=== PATIENT | female | born 2000 | race Caucasian/White ===

== ENCOUNTER → 2021-04-04 17:58 | Outpatient (CLI) | payer BC, OTHER, SELFPAY | PROVIDERS: Visit Provider Nurse Practitioner | DX: U07.1 COVID-19 (principal) | CPT/HCPCS: C9803; U0003; U0005 ==

== ENCOUNTER 2021-04-16 18:33 | Emergency (ER) | payer BC, OTHER, SELFPAY ==
[2021-04-16 19:02] VITALS: BP 137/68; PULSE 82; RESP 16; TEMP 37; O2SAT 99; BMI 32.8
--- NOTE | 2021-04-16 19:06 | HMH.EDUTC ---
[facility] [place] Disposition Clinical Impression: Exposure to COVID-19 virus Disposition: Home, Self-Care Condition on Discharge: Good Instructions: Preventing the Spread of Coronavirus Discharge Instructions, DI for COVID-19 (Suspected or Confirmed ) Additional Instructions: Drink plenty of fluids. Take tylenol for pain or fever. Return if you begin to have difficulty breathing. Follow up with your regular doctor. GO TO THE ER FOR ANY WORSENING SYMPTOMS Quarantine until you know the results of your covid-19 test. If it is positive, the health department should call you and give you further instructions about your length of Quarantine and other things. Notify your school or workplace of your results and follow their instructions regarding return to work/school. Referrals: Provider,Referral, [Primary Care Provider] - Forms: Work/School Release Time of Disposition: 19:25 Medical Decision Making - Medical Records Medical records reviewed: No: I reviewed the patient's medical records. - Matthew Inquiry Pt receiving controlled substance: No Vital Signs: 04/16/21 19:02 Temperature 98.6 F Temperature Source Oral Pulse Rate [Left] 82 Respiratory Rate 16 Blood Pressure [Right Arm] 137/68 Blood Pressure Mean [Right Arm] 91 02 Sat by Pulse Oximetry 99 [facility] [place] HPI - General Stated complaint: COVID TEST Time Seen by Provider: 04/16/21 19:06 Mode of Arrival: Ambulatory Source of Information: Patient Limitations: No Limitations Description of Symptoms (Recalled from Triage Doc. by RN): no exposure...asymptomatic...wants a covid test. HEENT Symptoms (Recalled from RN notes): No Resp Symptoms (Recalled from RN notes): No Skin Symptoms (Recalled from RN notes): No MS Symptoms (Recalled from RN notes): No Functional Status (Recalled from RN notes): wnl - History of Present Illness Provider Complaint: She is here to have a covid-19 test. She denies any symptoms. Her boyfriend is currently sick with viral type symptoms that could be covid-19 (but not confirmed). She would like to be tested for covid-19. She has not been vaccinated against covid-19. - Worker's Comp Is this a Worker's Comp case?: No [facility] History - Hepatitis A Screen Drug use history?: No High risk sexual behaviors?: No History of sexually transmitted infection?: No Currently employed?: No Childcare worker?: No Do you have indoor plumbing?: Yes Do you have electricity?: Yes Attestation statement:: This patient has been screened for Hepatitis A risk factors. I have reviewed the patient's past medical history: Yes ROS Obtained: Yes All systems reviewed & no additional complaints - Constitutional Constitutional: Reports system reviewed and no additional complaints, except as docu - Eyes Eyes: Reports system reviewed and no additional complaints, except as docu - ENT Ears, Nose, Mouth, and Throat: Reports system reviewed and no additional complaints, except as docu - Cardiovascular Cardiovascular: Reports system reviewed and no additional complaints, except as docu - Respiratory Respiratory: Reports system reviewed and no additional complaints, except as docu - Gastrointestinal Gastrointestingal: Reports: system reviewed and no additional complaints, except as docu - Musculoskeletal Musculoskeletal: Denies joint pain - Integumentary/Breasts Skin/Breast: Denies rash Physical Exam - General General appearance: alert, in no apparent distress - Head Head exam: atraumatic, normocephalic, normal inspection - Eye Eye exam: Present: normal appearance, PERRL, EOMI - ENT ENT exam: Present: normal exam, normal oropharynx, mucous membranes moist, TM's normal bilaterally, normal external ear exam - Neck Neck exam: Present: normal inspection, full ROM, trachea midline. Absent: meningismus, lymphadenopathy - Chest Chest inspection: Present: normal inspection, symmetric chest wall rise. Absent: tenderness - Respirat
[2021-04-16 19:20] VITALS: BP 137/68; PULSE 82; RESP 16; TEMP 37
== END 2021-04-16 19:38 | disposition home or self-care (01) ==
PROVIDERS: Emergency Provider Nurse Practitioner Family
DX: Z20.822 Contact with and (suspected) exposure to COVID-19 (principal)
CPT/HCPCS: 99202; C9803; G0463; U0003; U0005

== ENCOUNTER 2021-05-03 17:50 | Emergency (ER) | payer BC, OTHER, SELFPAY ==
[2021-05-03 17:51] VITALS: BP 132/91; PULSE 91; RESP 16; TEMP 37.1; O2SAT 98; BMI 32.5
[2021-05-03 18:28] LABS: UTC Pregnancy Test, Urine Positive (Negative)
[2021-05-03 18:29] LABS: UTC Strep Screen (Rapid) Negative (Negative)
--- NOTE | 2021-05-03 18:47 | HMH.EDUTC ---
[facility] [place] Disposition Clinical Impression: Positive test Disposition: Home, Self-Care Condition on Discharge: Good Instructions: Eating for Appropriate Weight Gain During , Exercise and : A Healthy Combination, Skin: Glowing, Stretching, Darkening, and More Additional Instructions: Call and make appointment with OBGYN Return if needed Straight to ER if any life threatening symptoms Return if needed *Monitor Temp, Over the counter Motrin or Tylenol as directed/as needed Tylenol every 4 hours and Motrin every 6 hours (as long as your family doctor has told you that you can take it) for fever or pain. and straight to ER if unable to lower temp less than 101.0 after medication given *Warm salt water gargles may help to soothe the throat *Throat Lozenges *Warm fluids like tea with honey may help to soothe the throat *Sleep elevated *Humidifier/Vaporizer Your throat swab was sent for culture. Those results are typically sent to your primary care. Be sure to follow up in 2-3 days with your family doctor/primary care physician if no improvement so they can review those result and treat if necessary. If you don?t have a primary care doctor, I recommend you get one but in the mean time, you will have to return to a walk in clinic Follow up IMMEDIATELY for new or worsening symptoms or no Noticeable improvement over the next 48-72 hours. 911 for difficulty breathing or swallowing Referrals: Provider,Referral, MD [Primary Care Provider] - As needed Time of Disposition: 18:55 Medical Decision Making - Matthew Inquiry Pt receiving controlled substance: No Matthew was queried for this patient: No Vital Signs: 05/03/21 17:51 Temperature 98.8 F Temperature Source Oral Pulse Rate [Right] 91 H Respiratory Rate 16 Blood Pressure [Right Arm] 132/91 H Blood Pressure Mean [Right Arm] 104 Blood Pressure Source [Right Arm] Automatic Cuff Blood Pressure Position [Right Arm] Sitting 02 Sat by Pulse Oximetry 98 Oxygen Delivery Method Room Air - Lab Data Lab results reviewed: Yes: I reviewed the patient's lab results. Lab Results 05/03/21 18:12: Strep Scn Rapid Clinic Negative 05/03/21 18:12: Tst Clinic Positive Orders (Tests/Meds): ORDERS Category Date Time Status Strep Screen Confirmation Stat Micro 05/03/21 18:12 Received [facility] [place] HPI - General Stated complaint: Sore throat; stomach issues Time Seen by Provider: 05/03/21 18:47 Mode of Arrival: Ambulatory Source of Information: Patient Limitations: No Limitations Description of Symptoms (Recalled from Triage Doc. by RN): pt advises she missed her period in mar and she has a sore throat HEENT Symptoms (Recalled from RN notes): Yes (sore throat) Resp Symptoms (Recalled from RN notes): No Skin Symptoms (Recalled from RN notes): No MS Symptoms (Recalled from RN notes): No Functional Status (Recalled from RN notes): na - History of Present Illness Provider Complaint: Patient states that she hasnt had a period since Mar and she said she is having sore throat and feeling achy and tired States that she wanted to get checked for and strep throat - Related Data Allergies Allergy/AdvReac Type Severity Reaction Status Date / Time No Known Allergies Allergy Verified 04/16/21 19:20 - Worker's Comp Is this a Worker's Comp case?: No [facility] History - Hepatitis A Screen Drug use history?: No High risk sexual behaviors?: No History of sexually transmitted infection?: No Currently employed?: No Childcare worker?: No Do you have indoor plumbing?: Yes Do you have electricity?: Yes Attestation statement:: This patient has been screened for Hepatitis A risk factors. I have reviewed the patient's past medical history: Yes ROS Obtained: Yes All systems reviewed & no additional complaints, Yes Systems reviewed as appropriate & no additional complaints - Constitutional Constitutional: Reports system reviewed and no
[2021-05-03 19:02] VITALS: BP 130/87; PULSE 84; RESP 16; TEMP 36.7; O2SAT 98
== END 2021-05-03 19:03 | disposition home or self-care (01) ==
PROVIDERS: Emergency Provider Nurse Practitioner
DX: J02.9 Acute pharyngitis, unspecified (principal); Z32.01 Encounter for pregnancy test, result positive
CPT/HCPCS: 81025; 87880; 99212; G0463

== ENCOUNTER 2021-05-04 16:52 | Emergency (ER) | payer BC, OTHER, SELFPAY ==
[2021-05-04 17:10] VITALS: BP 137/78; PULSE 83; RESP 18; TEMP 37.2; O2SAT 97; BMI 32.8
--- NOTE | 2021-05-04 17:48 | HMH.EDUTC ---
[facility] [place] Clinical Impression: Viral syndrome, Nausea Qualifiers: Weeks of gestation: less than 8 weeks Qualified Code(s): Z3A.01 - Less than 8 weeks gestation of Disposition: Home, Self-Care Condition on Discharge: Good Instructions: DI for COVID-19 (Suspected or Confirmed ), Preventing the Spread of Coronavirus Discharge Instructions Additional Instructions: Drink plenty of fluids. Take tylenol for pain or fever. Follow up with your regular doctor. GO TO THE ER FOR ANY WORSENING SYMPTOMS Quarantine until you know the results of your covid-19 test. Notify your school or workplace of your results and follow their instructions regarding return to work/school. Prescriptions: Promethazine HCl [Phenergan 25mg tab] 25 mg PO Q6H PRN #20 tab PRN Reason: Nausea And Vomiting Transmission Status: Received by [id number] Referrals: Provider,Referral, MD [Primary Care Provider] - Forms: Work/School Release Time of Disposition: 18:03 Medical Decision Making - Medical Records Medical records reviewed: No: I reviewed the patient's medical records. - Matthew Inquiry Pt receiving controlled substance: No Vital Signs: 05/04/21 17:10 05/04/21 18:10 Temperature 99 F 99 F Temperature Source Oral Pulse Rate 83 Pulse Rate [Left] 83 Respiratory Rate 18 18 Blood Pressure 137/78 Blood Pressure [Right Arm] 137/78 Blood Pressure Mean [Right Arm] 97 02 Sat by Pulse Oximetry 97 - Lab Data Lab results reviewed: Yes: I reviewed the patient's lab results. [facility] [place] HPI - General Stated complaint: COVID TEST (PREG) Time Seen by Provider: 05/04/21 17:48 Mode of Arrival: Ambulatory Source of Information: Patient Limitations: No Limitations Description of Symptoms (Recalled from Triage Doc. by RN): pt states she needs a covid test for work. HEENT Symptoms (Recalled from RN notes): No Resp Symptoms (Recalled from RN notes): No Skin Symptoms (Recalled from RN notes): No MS Symptoms (Recalled from RN notes): No Functional Status (Recalled from RN notes): wnl - History of Present Illness Provider Complaint: She has been having nausea and feeling bad. She is afraid she has covid. She denies any fever. She is very early , but she is unsure exactly how far (less that 8 weeks). - Related Data Previous Rx's Medication Instructions Recorded Promethazine HCl [Phenergan 25mg 25 mg PO Q6H PRN #20 tab 05/04/21 tab] Allergies Allergy/AdvReac Type Severity Reaction Status Date / Time No Known Allergies Allergy Verified 04/16/21 19:20 - Worker's Comp Is this a Worker's Comp case?: No H History - Hepatitis A Screen Drug use history?: No High risk sexual behaviors?: No History of sexually transmitted infection?: No Currently employed?: No Childcare worker?: No Do you have indoor plumbing?: Yes Do you have electricity?: Yes Attestation statement:: This patient has been screened for Hepatitis A risk factors. I have reviewed the patient's past medical history: Yes ROS Obtained: Yes All systems reviewed & no additional complaints - Constitutional Constitutional: Reports as per HPI - Eyes Eyes: Denies eye discharge - ENT Ears, Nose, Mouth, and Throat: Reports as per HPI - Cardiovascular Cardiovascular: Denies chest pain - Respiratory Respiratory: Denies chest congestion, Reports cough, Denies dyspnea, Denies stridor, Denies wheezing Physical Exam - General General appearance: alert, in no apparent distress - Head Head exam: atraumatic, normocephalic, normal inspection - Eye Eye exam: Present: normal appearance, PERRL, EOMI - ENT ENT exam: Present: normal exam, normal oropharynx, mucous membranes moist, TM's normal bilaterally, normal external ear exam - Neck Neck exam: Present: normal inspection, full ROM, trachea midline. Absent: meningismus, lymphadenopathy - Chest Chest inspection: Present: normal
[2021-05-04 18:10] VITALS: BP 137/78; PULSE 83; RESP 18; TEMP 37.2
== END 2021-05-04 18:11 | disposition home or self-care (01) ==
PROVIDERS: Emergency Provider Nurse Practitioner Family
DX: B34.9 Viral infection, unspecified (principal); Z3A.01 Less than 8 weeks gestation of pregnancy
CPT/HCPCS: 99212; C9803; G0463; U0003; U0005

== ENCOUNTER → 2021-05-16 15:08 | Outpatient (CLI) | payer BC, OTHER, SELFPAY ==
[2021-05-16 15:51] LABS: Basophils # 0.1 K/mm3 (0-0.2); Basophils % 0.6 % (0.1-2.0); Eosinophils # 0.2 K/mm3 (0.0-0.4); Eosinophils % 1.7 % (0.1-12.0); Hematocrit 40.3 % (37.0-47.0); Hemoglobin 13.5 g/dL (12.2-16.2); Lymphocytes % 21.1 % (10-50); Mean Corpuscular HGB Conc 33.3 g/dL (31.8-35.4); Mean Corpuscular Hemoglobin 28.5 pg (27.0-31.2); Mean Corpuscular Volume 85.6 fl (81-99); Mean Platelet Volume 8.1 fl (7.4-10.4); Monocytes # 0.4 K/mm3 (0.1-1.0); Monocytes % 3.9 % (1.7-9.3); Neutrophils # 6.8 K/mm3 (1.8-7.8); Neutrophils % 72.8 % (37.0-80.0); Platelet Count 390 K/mm3 (142-424); Red Blood Count 4.71 M/mm3 (4.20-5.40); Red Cell Distribution Width 13.5 % (11.5-17.5); White Blood Count 9.3 K/mm3 (4.5-13.0)
[2021-05-18 07:12] LABS: HIV Screen 4th Generation wRfx Non Reactive (Non Reactive); Hepatitis B Surface Antigen Negative (Negative); Hepatitis C Antibody <0.1 s/co ratio (0.0-0.9); Rubella Antibodies, IgG <0.90 index (Immune >0.99)
[2021-05-18 09:14] LABS: Rapid Plasma Reagin Ab Titer Non Reactive (NonRea<1:1)
[2021-05-18 21:19] LABS: Neisseria gonorrhoeae, NAA Negative (Negative)
== END ==
LOC: LAB 15:10
PROVIDERS: Visit Provider Nurse Practitioner Obstetrics & Gynecology
DX: Z34.90 Encounter for supervision of normal pregnancy, unspecified, unspecified trimester (principal); Z3A.11 11 weeks gestation of pregnancy
CPT/HCPCS: 36415; 85025; 86592; 86703; 86762; 86850; 87340; 87380; 87491; 87591; G0432

== ENCOUNTER → 2021-05-24 12:52 | Outpatient (CLI) | payer BC, OTHER, SELFPAY ==
--- NOTE | 2021-05-24 12:52 | US_ITS ---
FINAL REPORT CLINICAL HISTORY: for dates FINDINGS: Transvaginal sonographic images of the pelvis were obtained. There is a single intrauterine . Average gestational age is 6 weeks 4 days. Yolk sac measures 0.42 cm. [place]-rump length measures 0.67 cm consistent with 6 week 4 day gestation. Heart rate is detected at 126 bpm. The ovaries are within normal limits. IMPRESSION: Single living intrauterine . Reviewed, Interpreted and Dictated by Mirza Peralta MD Transcribed by Yvonen Reza Authenticated by Mirza Peralta MD on 05/24/2021 04:01:32 PM [facility]
== END ==
PROVIDERS: PCP Nurse Practitioner Obstetrics & Gynecology; Visit Provider Nurse Practitioner Obstetrics & Gynecology
DX: Z34.90 Encounter for supervision of normal pregnancy, unspecified, unspecified trimester (principal)
CPT/HCPCS: 76801

== ENCOUNTER → 2021-07-11 15:46 | Outpatient (CLI) | payer BC, OTHER, SELFPAY | PROVIDERS: Visit Provider Nurse Practitioner Obstetrics & Gynecology | DX: N39.0 Urinary tract infection, site not specified (principal); Z3A.13 13 weeks gestation of pregnancy | CPT/HCPCS: 36415; 87086 ==

== ENCOUNTER 2021-08-26 16:26 | Outpatient (CLI) | payer OTHER, SELFPAY ==
[2021-08-26 16:36] VITALS: BMI 35.0
[2021-08-26 16:44] LABS: Microscopic, Urine URINE MICROSCOPIC (MICROSCOPIC)
[2021-08-26 16:49] VITALS: BP 119/76; PULSE 85; RESP 16; TEMP 36.8; O2SAT 95; BMI 35.0
[2021-08-26 16:55] LABS: Appearance,Urine CLEAR (Clear); Bilirubin,Urine Negative (Negative); Blood, Urine Negative (Negative); Color,Urine YELLOW (Yellow); Glucose,Urine (UA) Negative (Negative); Ketones,Urine Negative (Negative); Leukocyte Esterase,Urine Negative (Negative); Nitrate,Urine Negative (Negative); Protein,Urine Negative (Negative); Specific Gravity, Urine 1.025 (1.005-1.030); Urobilinogen,Urine 0.2 EU/dl (0.2)
[2021-08-26 17:05] LABS: Amphetamine/Metha Screen,Urine Negative ng/ml (<1000); Benzodiazepines Screen,Urine Negative ng/ml (<200)
[2021-08-26 17:06] LABS: Barbiturates Screen,Urine Negative ng/ml (<200)
[2021-08-26 17:07] LABS: Cannabinoid Screen,Urine Negative ng/ml (<50); Cocaine Screen,Urine Negative ng/ml (<300)
[2021-08-26 17:08] LABS: Methadone Screen,Urine Negative ng/ml (<300); Opiate Screen,Urine Negative ng/ml (<300)
[2021-08-26 17:09] LABS: Bacteria,Urine Trace /lpf; Phencyclidine Screen,Urine Negative ng/ml (<25); Squamous Epithelial Cell,Urine Occasional #/hpf (0-5)
== END 2021-08-26 17:14 | disposition home or self-care (01) ==
LOC: OBOUT 16:29 → OB 16:30
PROVIDERS: PCP Nurse Practitioner Obstetrics & Gynecology; Visit Provider Obstetrics & Gynecology
DX: O36.8120 Decreased fetal movements, second trimester, not applicable or unspecified (principal); Z3A.20 20 weeks gestation of pregnancy
CPT/HCPCS: 80305; 81001; G0463

== ENCOUNTER → 2021-08-29 14:59 | Outpatient (CLI) | payer OTHER, SELFPAY ==
--- NOTE | 2021-08-29 14:59 | US_ITS ---
FINAL REPORT CLINICAL HISTORY: 20 weeks gestation FINDINGS: There is a single live intrauterine gestation. Presentation is breech. The cervix is closed and measures 3.5 cm. Placenta is posterior and grade 1. Cardiac activity is confirmed at 146 bpm. The fetus is active. Three-vessel cord with satisfactory umbilical cord insertion. Four-chamber heart is noted. brain and ventricles are unremarkable. Chest and diaphragm are unremarkable. ABDOMEN: Both kidneys are unremarkable. Stomach is unremarkable. SPINE: No anomalies identified. Both arms and legs noted. AMNIOTIC FLUID: Appropriate amount. MEASUREMENTS: ULTRASOUND AGE: 20 weeks 1 days. GESTATION AGE: 20 weeks 3 days. ESTIMATED WEIGHT: 334 g GROWTH PERCENTILE: 30% BPD: 4.6 cm consistent with 20 weeks 0 days. OFD: 6.2 cm consistent with 21 weeks 0 days. HC: 17.2 cm consistent with 19 weeks 6 days. AC: 14.6 cm consistent with 20 weeks 0 days. FL: 3.4 cm consistent with 20 weeks 4 days. HC/AC: 1.18 CI: 74% FL/BPD: 73% FL/AC: 23% IMPRESSION: Single living IUP with an ultrasound age of 20 weeks 1 days. Reviewed, Interpreted and Dictated by Carlos Mccord III, MD Transcribed by Wes Ramirez Authenticated and [facility]
== END ==
PROVIDERS: Visit Provider Nurse Practitioner Obstetrics & Gynecology
DX: Z34.90 Encounter for supervision of normal pregnancy, unspecified, unspecified trimester (principal); Z3A.20 20 weeks gestation of pregnancy
CPT/HCPCS: 76811

== ENCOUNTER 2021-09-17 05:30 | Emergency (ER) | payer OTHER, SELFPAY ==
[2021-09-17 05:30] VITALS: BP 142/91; PULSE 82; RESP 16; TEMP 37.1; O2SAT 99; BMI 35.0
[2021-09-17 05:58] LABS: Microscopic, Urine URINE MICROSCOPIC (MICROSCOPIC)
[2021-09-17 05:58] LABS: Basophils # 0.1 K/mm3 (0-0.2); Basophils % 0.7 % (0.1-2.0); Eosinophils # 0.1 K/mm3 (0.0-0.4); Hematocrit 37.7 % (37.0-47.0); Hemoglobin 12.3 g/dL (12.2-16.2); Lymphocytes # 2.2 K/mm3 (0.7-4.5); Lymphocytes % 18.2 % (10-50); Mean Corpuscular HGB Conc 32.6 g/dL (31.8-35.4); Mean Corpuscular Hemoglobin 29.2 pg (27.0-31.2); Mean Corpuscular Volume 89.8 fl (81-99); Mean Platelet Volume 8.4 fl (7.4-10.4); Monocytes # 0.5 K/mm3 (0.1-1.0); Monocytes % 3.9 % (1.7-9.3); Neutrophils # 9.4 K/mm3 (1.8-7.8); Neutrophils % 76.3 % (37.0-80.0); Platelet Count 368 K/mm3 (142-424); White Blood Count 12.3 K/mm3 (4.5-13.0)
--- NOTE | 2021-09-17 05:59 | PC.NURSE ---
HEART TONES 152. FAMILY AT BEDSIDE. SPOKE WITH OB NACHO AND PT CAN GO TO OB FLOOR.
[2021-09-17 06:01] LABS: Appearance,Urine SL CLOUDY (Clear); Bilirubin,Urine Negative (Negative); Blood, Urine Negative (Negative); Color,Urine YELLOW (Yellow); Glucose,Urine (UA) Negative (Negative); Ketones,Urine Negative (Negative); Leukocyte Esterase,Urine Negative (Negative); Nitrate,Urine Negative (Negative); Protein,Urine Negative (Negative); Urobilinogen,Urine 0.2 EU/dl (0.2)
--- NOTE | 2021-09-17 06:05 | HMH.EDPREG ---
ED Disposition Clinical Impression: Abdominal pain Qualifiers: Abdominal location: right lower quadrant Qualified Code(s): R10.31 - Right lower quadrant pain Qualifiers: Weeks of gestation: 23 weeks Qualified Code(s): Z3A.23 - 23 weeks gestation of Disposition: Still a Patient Condition on Discharge: Good Instructions: DI for Acute Abdominal Pain Additional Instructions: will have pt seen in ob Referrals: Saturnino Barger MD [Primary Care Provider] - - Critical Care Critical Care Time: No Attestation: On 09/17/21, the high probability of a clinically significant, sudden or life threatening deterioration of the following system(s) required my full and direct attention, intervention and personal management. The time I documented below is in addition to time spent performing reported procedures but includes the following listed in this critical care notation. Medical Decision Making - Medical Records Medical records reviewed: Yes: I reviewed the patient's medical records. - Matthew Inquiry Pt receiving controlled substance: No Vital Signs: 09/17/21 05:30 Temperature 98.8 F Temperature Source Oral Pulse Rate [Left Radial] 82 Respiratory Rate 16 Blood Pressure [Right Arm] 142/91 H Blood Pressure Mean [Right Arm] 108 Blood Pressure Source [Right Arm] Automatic Cuff Blood Pressure Position [Right Arm] Sitting 02 Sat by Pulse Oximetry 99 Oxygen Delivery Method Room Air - Lab Data Lab results reviewed: Yes: I reviewed the patient's lab results. Lab Results 09/17/21 05:37: Urine Color Yellow, Urine Appearance Sl cloudy, Urine pH 7.0, Ur Specific [place] 1.020, Urine Protein Negative, Urine Glucose (UA) Negative, Urine Ketones Negative, Urine Blood Negative, Urine Nitrate Negative, Urine Bilirubin Negative, Urine Urobilinogen 0.2, Ur Leukocyte Esterase Negative 09/17/21 05:48: WBC 12.3, RBC 4.20, Hgb 12.3, Hct 37.7, MCV 89.8, MCH 29.2, MCHC 32.6, RDW 14.0, Plt Count 368, MPV 8.4, Neut % (Auto) 76.3, Lymph % (Auto) 18.2, [place] % (Auto) 3.9, Eos % (Auto) 1.0, Baso % (Auto) 0.7, Neut # (Auto) 9.4 H, Lymph # (Auto) 2.2, [place] # (Auto) 0.5, Eos # (Auto) 0.1, Baso # (Auto) 0.1 Result diagrams: 09/17/21 05:48 Orders (Tests/Meds): ED MEDICATIONS Generic Name Dose Route Start Last Admin Trade Name Freq PRN Reason Stop Dose Admin Sodium Chloride 1,000 mls @ 999 mls/hr 09/17/21 06:00 Sod Chlor 0.9% 1000ml Bag IV 09/17/21 07:00 .Q1H1M KITA ORDERS Category Date Time Status C-Reactive Protein Stat Lab 09/17/21 05:48 Received CMP [Comprehensive Metabolic Panel] Stat Lab 09/17/21 05:48 Received Complete Blood Count Auto Diff Stat Lab 09/17/21 05:48 Results Erythrocyte Sedimentation Rate Stat Lab 09/17/21 05:48 Results Lactic Acid Stat Lab 09/17/21 05:48 Received Procalcitonin Stat Lab 09/17/21 05:48 Received Urinalysis and Microscopic Stat Lab 09/17/21 05:37 Results Medical Decision Narrative: rt sided abd pain with no def etiology HPI - General Chief complaint: Abdominal Pain Stated complaint: SOA/ABD Pain Time Seen by Provider: 09/17/21 06:05 Mode of Arrival: EMS Source of Information: Patient, EMS, Medical Record Limitations: No Limitations Description of Symptoms (Recalled from ER Triage Doc. by RN): PT IS 23 WEEKS . RIGHT LOWER ABDOMINAL PAIN SINCE YESTERDAY; PAIN IS CONSTANT AND SHARP. [id number] - History of Present Illness HPI Narrative: rt sided abd pain over the last day with nausea - no diarrheaa MD Complaint: abdominal pain Onset (ago): day(s) Consistency: constant Location: abdomen Severity: moderate Quality: stabbing Associated symptoms: denies other symptoms Vaginal bleeding: none : Yes Date of Last Menstrual Period: 04/25/21 care: followed by OB - Related Data Para: 0 Home Medications Medication Instructions Recorded Confirmed Vit Calc,Iron,Folic [Kpn] 1 tab PO DAILY
[2021-09-17 06:06] LABS: Alanine Aminotransferase 16 U/L (12-78); Albumin Level 3.6 g/dl (3.5-5.0); Albumin/Globulin Ratio 1.2 (1.1-1.8); Alkaline Phosphatase 71 U/L (38-126); Anion Gap 10.4 mEq/L (5-15); Aspartate Amino Transferase 20 U/L (14-36); Bilirubin,Total 0.1 mg/dl (0.2-1.3); Blood Urea Nitrogen 3 mg/dl (7-17); Calcium 9.5 mg/dl (8.4-10.2); Carbon Dioxide 21 mmol/L (22.0-30.0); Chloride 108 mmol/L (98-107); Creatinine Clearance Estimated 254 mL/min (50-200); Estimated Glomerular Filt Rate 157 ml/min (>60); GFR (African American) 190 ML/MIN (>60); Glucose 100 mg/dl (74-100); Lactic Acid 0.9 mmol/L (0.7-2.1); Potassium 3.4 mmoL/L (3.5-5.1); Sodium 136 mmol/L (136-145); Total Protein,Serum 6.6 g/dl (6.3-8.2)
[2021-09-17 06:06] LABS: Amorphous Sediment,Urine 2+ /lpf
[2021-09-17 06:11] LABS: C-Reactive Protein 5.5 mg/L (0-4)
[2021-09-17 06:14] VITALS: BP 120/81; PULSE 89; RESP 17; TEMP 37.1; O2SAT 98
--- NOTE | 2021-09-17 06:19 | PC.NURSE ---
REPORT TO NACHO NAJERA IN OB FLOOR.
[2021-09-17 06:24] LABS: Procalcitonin 0.043 ng/mL (0.0-2.0)
[2021-09-17 06:50] LABS: Erythrocyte Sedimentation Rate 34 mm/hr (0-20)
== END 2021-09-17 06:15 | disposition home or self-care (01) ==
PROVIDERS: Emergency Provider Emergency Medicine; PCP Internal Medicine Adolescent Medicine
DX: R10.31 Right lower quadrant pain (principal); Z3A.23 23 weeks gestation of pregnancy
CPT/HCPCS: 80053; 81001; 83605; 84145; 85025; 85651; 86140; 99283

== ENCOUNTER 2021-09-17 06:12 | Outpatient (CLI) | payer OTHER, SELFPAY ==
[2021-09-17 06:29] VITALS: BMI 35.0
[2021-09-17 06:30] VITALS: BP 123/74; PULSE 102; RESP 18; TEMP 36.8; O2SAT 99; BMI 35.0
[2021-09-17 07:12] LABS: Amphetamine/Metha Screen,Urine Negative ng/ml (<1000)
[2021-09-17 07:13] LABS: Barbiturates Screen,Urine Negative ng/ml (<200); Benzodiazepines Screen,Urine Negative ng/ml (<200)
[2021-09-17 07:21] LABS: Methadone Screen,Urine Negative ng/ml (<300)
[2021-09-17 07:22] LABS: Cannabinoid Screen,Urine Negative ng/ml (<50); Cocaine Screen,Urine Negative ng/ml (<300)
[2021-09-17 07:24] LABS: Opiate Screen,Urine Negative ng/ml (<300); Phencyclidine Screen,Urine Negative ng/ml (<25)
== END 2021-09-17 07:45 | disposition home or self-care (01) ==
LOC: OBOUT 06:13 → OB 06:14
PROVIDERS: PCP Internal Medicine Adolescent Medicine; Visit Provider Obstetrics & Gynecology
DX: O26.892 Other specified pregnancy related conditions, second trimester (principal); Z3A.23 23 weeks gestation of pregnancy; R10.84 Generalized abdominal pain
CPT/HCPCS: 80305; G0463

== ENCOUNTER → 2021-10-12 08:57 | Outpatient (CLI) | payer OTHER, SELFPAY ==
[2021-10-12 09:14] LABS: Basophils # 0.1 K/mm3 (0-0.2); Basophils % 0.5 % (0.1-2.0); Eosinophils # 0.2 K/mm3 (0.0-0.4); Eosinophils % 1.7 % (0.1-12.0); Lymphocytes % 21.2 % (10-50); Mean Corpuscular HGB Conc 32.4 g/dL (31.8-35.4); Mean Corpuscular Hemoglobin 29.1 pg (27.0-31.2); Mean Corpuscular Volume 89.8 fl (81-99); Mean Platelet Volume 8.6 fl (7.4-10.4); Monocytes # 0.5 K/mm3 (0.1-1.0); Neutrophils # 6.8 K/mm3 (1.8-7.8); Neutrophils % 71.6 % (37.0-80.0); Platelet Count 361 K/mm3 (142-424); Red Blood Count 4.11 M/mm3 (4.20-5.40); Red Cell Distribution Width 13.5 % (11.5-17.5); White Blood Count 9.5 K/mm3 (4.5-13.0)
[2021-10-12 09:30] LABS: Glucose,Fasting 92 mg/dl (74-100)
[2021-10-12 11:03] LABS: Glucose 1 Hour 153 mg/dL (74-100)
== END ==
PROVIDERS: Visit Provider Nurse Practitioner Obstetrics & Gynecology
DX: Z34.90 Encounter for supervision of normal pregnancy, unspecified, unspecified trimester (principal)
CPT/HCPCS: 36415; 82951; 85025

== ENCOUNTER → 2021-10-14 08:37 | Outpatient (CLI) | payer OTHER, SELFPAY ==
[2021-10-14 09:25] LABS: Glucose,Fasting 88 mg/dl (74-100)
[2021-10-14 10:51] LABS: Glucose 1 Hour 133 mg/dL (74-100)
[2021-10-14 12:27] LABS: Glucose 2 Hour 136 mg/dL (74-100)
[2021-10-14 13:37] LABS: Glucose 3 Hour 113 mg/dL (74-100)
== END ==
PROVIDERS: Visit Provider Nurse Practitioner Obstetrics & Gynecology
DX: Z34.90 Encounter for supervision of normal pregnancy, unspecified, unspecified trimester (principal)
CPT/HCPCS: 36415; 82951

== ENCOUNTER → 2021-10-26 06:48 | Outpatient (CLI) | payer OTHER, SELFPAY | PROVIDERS: Visit Provider Nurse Practitioner Obstetrics & Gynecology | DX: N39.0 Urinary tract infection, site not specified (principal) | CPT/HCPCS: 87086 ==

== ENCOUNTER 2021-11-30 16:52 | Outpatient (CLI) | payer OTHER, SELFPAY ==
[2021-11-30 17:01] VITALS: BMI 36.6
[2021-11-30 17:30] LABS: Microscopic, Urine URINE MICROSCOPIC (MICROSCOPIC)
[2021-11-30 17:35] LABS: Appearance,Urine CLEAR (Clear); Bilirubin,Urine Negative (Negative); Blood, Urine Negative (Negative); Color,Urine YELLOW (Yellow); Glucose,Urine (UA) Negative (Negative); Ketones,Urine Negative (Negative); Leukocyte Esterase,Urine Negative (Negative); Nitrate,Urine Negative (Negative); Protein,Urine Negative (Negative); Specific Gravity, Urine 1.025 (1.005-1.030); Urobilinogen,Urine 0.2 EU/dl (0.2)
[2021-11-30 17:47] LABS: Barbiturates Screen,Urine Negative ng/ml (<200)
[2021-11-30 17:48] LABS: Amphetamine/Metha Screen,Urine Negative ng/ml (<1000); Benzodiazepines Screen,Urine Negative ng/ml (<200)
[2021-11-30 17:49] LABS: Bacteria,Urine 3+ /lpf; Cannabinoid Screen,Urine Negative ng/ml (<50)
[2021-11-30 17:50] LABS: Cocaine Screen,Urine Negative ng/ml (<300); Methadone Screen,Urine Negative ng/ml (<300)
[2021-11-30 17:51] LABS: Opiate Screen,Urine Negative ng/ml (<300)
[2021-11-30 17:52] LABS: Phencyclidine Screen,Urine Negative ng/ml (<25)
[2021-11-30 18:04] VITALS: BP 127/86; PULSE 103; RESP 18; TEMP 37.2; O2SAT 95; BMI 36.6
[2021-11-30 18:04] LABS: Fetal Fibronectin (Rapid) Negative (Negative)
== END 2021-11-30 18:25 | disposition home or self-care (01) ==
LOC: OBOUT 16:54 → OB 16:56
PROVIDERS: Obstetrics & Gynecology; Visit Provider Nurse Practitioner Obstetrics & Gynecology
DX: O26.893 Other specified pregnancy related conditions, third trimester (principal); Z3A.33 33 weeks gestation of pregnancy
CPT/HCPCS: 59025; 80305; 81001; 82731; 87086; G0463

== ENCOUNTER 2021-12-07 14:02 | Outpatient (CLI) | payer OTHER, SELFPAY ==
[2021-12-07 15:00] VITALS: BP 142/77; PULSE 107; RESP 20; TEMP 36.9; O2SAT 96; BMI 37.9
[2021-12-07 15:05] VITALS: BMI 34.3
[2021-12-07 15:35] LABS: Basophils # 0.1 K/mm3 (0-0.2); Basophils % 0.5 % (0.1-2.0); Eosinophils # 0.2 K/mm3 (0.0-0.4); Eosinophils % 1.4 % (0.1-12.0); Hematocrit 35.4 % (37.0-47.0); Hemoglobin 11.8 g/dL (12.2-16.2); Lymphocytes % 18.3 % (10-50); Mean Corpuscular HGB Conc 33.4 g/dL (31.8-35.4); Mean Corpuscular Hemoglobin 28.7 pg (27.0-31.2); Mean Corpuscular Volume 85.8 fl (81-99); Mean Platelet Volume 10.2 fl (7.4-10.4); Monocytes # 0.6 K/mm3 (0.1-1.0); Monocytes % 5.6 % (1.7-9.3); Neutrophils # 8.1 K/mm3 (1.8-7.8); Neutrophils % 74.2 % (37.0-80.0); Platelet Count 344 K/mm3 (142-424); Red Blood Count 4.13 M/mm3 (4.20-5.40); Red Cell Distribution Width 14.2 % (11.5-17.5); White Blood Count 10.9 K/mm3 (4.5-13.0)
[2021-12-07 16:09] LABS: Potassium 4.6 mmoL/L (3.5-5.1); Sodium 135 mmol/L (136-145)
[2021-12-07 16:10] LABS: Alanine Aminotransferase 13 U/L (12-78); Anion Gap 13.6 mEq/L (5-15); Aspartate Amino Transferase 26 U/L (14-36); Blood Urea Nitrogen 5 mg/dl (7-17); Calcium 8.8 mg/dl (8.4-10.2); Carbon Dioxide 20 mmol/L (22.0-30.0); Chloride 106 mmol/L (98-107); Creatinine Clearance Estimated 257 mL/min (50-200); Estimated Glomerular Filt Rate 157 ml/min (>60); GFR (African American) 190 ML/MIN (>60); Glucose 70 mg/dl (74-100)
[2021-12-07 16:14] LABS: D-Dimer 1.56 ug/mL (0.0-0.5)
[2021-12-07 16:18] LABS: Activated Partial Thrombo Time 22.7 seconds (22.8-30.6); Fibrinogen 504 mg/dL (229.9-363.5); INR 0.86 (0.9-1.1); Prothrombin Time 9.4 seconds (10.1-12.5)
== END 2021-12-07 16:45 | disposition home or self-care (01) ==
LOC: OBOUT 14:03 → OB 14:05
PROVIDERS: Visit Provider Nurse Practitioner Obstetrics & Gynecology
DX: O26.893 Other specified pregnancy related conditions, third trimester (principal); Z3A.34 34 weeks gestation of pregnancy
CPT/HCPCS: 59025; 80048; 84450; 84460; 84550; 85025; 85378; 85384; 85610; 85730; 96365; G0463

== ENCOUNTER 2021-12-09 16:21 | Outpatient (CLI) | payer OTHER, SELFPAY ==
[2021-12-09 16:29] VITALS: BMI 37.9
[2021-12-09 16:49] VITALS: BP 128/82; PULSE 106; RESP 20; TEMP 36.7; O2SAT 97; BMI 37.9
[2021-12-09 18:13] LABS: Microscopic, Urine URINE MICROSCOPIC (MICROSCOPIC)
[2021-12-09 18:15] LABS: Appearance,Urine CLEAR (Clear); Bilirubin,Urine Negative (Negative); Blood, Urine Negative (Negative); Color,Urine YELLOW (Yellow); Glucose,Urine (UA) Negative (Negative); Ketones,Urine Negative (Negative); Leukocyte Esterase,Urine Negative (Negative); Nitrate,Urine Negative (Negative); Protein,Urine TRACE (Negative); Specific Gravity, Urine >= 1.030 (1.005-1.030); Urobilinogen,Urine 0.2 EU/dl (0.2)
[2021-12-09 18:17] LABS: Bacteria,Urine Trace /lpf
[2021-12-09 18:29] LABS: Amphetamine/Metha Screen,Urine Negative ng/ml (<1000); Barbiturates Screen,Urine Negative ng/ml (<200)
[2021-12-09 18:30] LABS: Benzodiazepines Screen,Urine Negative ng/ml (<200)
[2021-12-09 18:31] LABS: Cannabinoid Screen,Urine Negative ng/ml (<50)
[2021-12-09 18:32] LABS: Cocaine Screen,Urine Negative ng/ml (<300)
[2021-12-09 18:33] LABS: Methadone Screen,Urine Negative ng/ml (<300); Opiate Screen,Urine Negative ng/ml (<300)
[2021-12-09 18:34] LABS: Phencyclidine Screen,Urine Negative ng/ml (<25)
== END 2021-12-09 20:57 | disposition home or self-care (01) ==
LOC: OBOUT 16:22 → OB 16:22
PROVIDERS: PCP Internal Medicine Adolescent Medicine; Visit Provider Obstetrics & Gynecology
DX: O47.03 False labor before 37 completed weeks of gestation, third trimester (principal); O36.8190 Decreased fetal movements, unspecified trimester, not applicable or unspecified; Z3A.35 35 weeks gestation of pregnancy
CPT/HCPCS: 59025; 80305; 81001; 96365; G0463

== ENCOUNTER → 2021-12-16 14:41 | Outpatient (CLI) | payer OTHER, SELFPAY | PROVIDERS: Visit Provider Nurse Practitioner Obstetrics & Gynecology | DX: Z34.90 Encounter for supervision of normal pregnancy, unspecified, unspecified trimester (principal); Z3A.35 35 weeks gestation of pregnancy | CPT/HCPCS: 86403 ==

== ENCOUNTER 2021-12-21 17:22 | Observation (INO) | payer OTHER, SELFPAY ==
[2021-12-21] VITALS (7 sets, daily range): BP systolic 123–160; BP diastolic 75–90; PULSE 90–102; RESP 18–19; TEMP 36.9; O2SAT 97–99; BMI 38.2
[2021-12-21 13:08] LABS: Microscopic, Urine URINE MICROSCOPIC (MICROSCOPIC)
[2021-12-21 13:27] LABS: Barbiturates Screen,Urine Negative ng/ml (<200); Benzodiazepines Screen,Urine Negative ng/ml (<200)
[2021-12-21 13:28] LABS: Amphetamine/Metha Screen,Urine Negative ng/ml (<1000)
[2021-12-21 13:29] LABS: Cannabinoid Screen,Urine Negative ng/ml (<50); Methadone Screen,Urine Negative ng/ml (<300)
[2021-12-21 13:30] LABS: Cocaine Screen,Urine Negative ng/ml (<300)
[2021-12-21 13:31] LABS: Opiate Screen,Urine Negative ng/ml (<300); Phencyclidine Screen,Urine Negative ng/ml (<25)
[2021-12-21 13:58] LABS: Appearance,Urine CLEAR (Clear); Bilirubin,Urine Negative (Negative); Blood, Urine Negative (Negative); Color,Urine DK YELLOW (Yellow); Glucose,Urine (UA) Negative (Negative); Ketones,Urine Negative (Negative); Leukocyte Esterase,Urine Negative (Negative); Nitrate,Urine Negative (Negative); Protein,Urine Negative (Negative); Urobilinogen,Urine 0.2 EU/dl (0.2)
[2021-12-21 14:01] LABS: WBC,Urine Occasional #/hpf (0-3)
[2021-12-21 14:02] LABS: Bacteria,Urine Trace /lpf
[2021-12-21 15:14] LABS: Potassium 5.1 mmoL/L (3.5-5.1); Sodium 134 mmol/L (136-145)
[2021-12-21 15:15] LABS: Basophils # 0.1 K/mm3 (0-0.2); Basophils % 1.5 % (0.1-2.0); Chloride 104 mmol/L (98-107); Eosinophils # 0.1 K/mm3 (0.0-0.4); Eosinophils % 1.6 % (0.1-12.0); Lymphocytes # 1.6 K/mm3 (0.7-4.5); Lymphocytes % 17.5 % (10-50); Mean Corpuscular HGB Conc 33.4 g/dL (31.8-35.4); Mean Corpuscular Hemoglobin 28.4 pg (27.0-31.2); Mean Platelet Volume 10.5 fl (7.4-10.4); Monocytes # 0.5 K/mm3 (0.1-1.0); Monocytes % 5.8 % (1.7-9.3); Neutrophils # 6.6 K/mm3 (1.8-7.8); Neutrophils % 73.7 % (37.0-80.0); Platelet Count 372 K/mm3 (142-424); Red Blood Count 4.24 M/mm3 (4.20-5.40); Red Cell Distribution Width 14.5 % (11.5-17.5)
[2021-12-21 15:16] LABS: Blood Urea Nitrogen 7 mg/dl (7-17); Creatinine Clearance Estimated 278 mL/min (50-200); Estimated Glomerular Filt Rate 157 ml/min (>60); GFR (African American) 190 ML/MIN (>60)
[2021-12-21 15:17] LABS: Albumin Level 3.5 g/dl (3.5-5.0); Albumin/Globulin Ratio 1.2 (1.1-1.8); Alkaline Phosphatase 138 U/L (38-126); Anion Gap 13.1 mEq/L (5-15); Bilirubin,Total 0.6 mg/dl (0.2-1.3); Carbon Dioxide 22 mmol/L (22.0-30.0); Globulin 2.9 g/dL (1.3-3.2); Total Protein,Serum 6.4 g/dl (6.3-8.2)
[2021-12-21 15:18] LABS: Alanine Aminotransferase 14 U/L (12-78); Aspartate Amino Transferase 48 U/L (14-36); Calcium 8.6 mg/dl (8.4-10.2); Glucose 73 mg/dl (74-100)
--- NOTE | 2021-12-21 16:56 | EXP.ACUTE.PN ---
Subjective *Date: 12/21/21 *Time: 16:56 Interval history: She came into labor and delivery with nausea and vomiting. She says she has had some nausea and vomiting for about 3 days on and off. She was a little dehydrated she had voided much. Her blood pressure is slightly elevated. She has been on labetalol 100 mg twice daily for the last few days. Medical Exam Vital signs and Labs for Last 24 Hours: Vital Signs Temp Pulse Resp BP Pulse Ox 12/21/21 15:15 144/88 H 12/21/21 12:50 98.4 F 101 H 18 130/75 97 12/21/21 13:16 98.4 F 101 H 18 130/75 97 Intake and Output 12/21/21 12/21/21 12/21/21 03:59 11:59 19:59 Other: Weight 216 lb Patient Weight 12/22/21 11:59 Weight 216 lb Laboratory Results - last 24 hr 12/21/21 12:52: Urine Color Dk yellow, Urine Appearance Clear, Urine pH 6.0, Ur Specific [place] 1.020, Urine Protein Negative, Urine Glucose (UA) Negative, Urine Ketones Negative, Urine Blood Negative, Urine Nitrate Negative, Urine Bilirubin Negative, Urine Urobilinogen 0.2, Ur Leukocyte Esterase Negative, Urine RBC None, Urine WBC Occasional, Ur Squamous Epith Cells 10-20, Urine Bacteria Trace 12/21/21 12:52: Urine Opiates Screen Negative, Urine Methadone Screen Negative, Ur Barbituates Screen Negative, Ur Phencyclidine Scrn Negative, Ur Amphetamines Screen Negative, U Benzodiazepines Scrn Negative, Urine Cocaine Screen Negative, U Marijuana (THC) Screen Negative 12/21/21 14:45: WBC 9.0, RBC 4.24, Hgb 12.0 L, Hct 36.0 L, MCV 85.0, MCH 28.4, MCHC 33.4, RDW 14.5, Plt Count 372, MPV 10.5 H, Neut % (Auto) 73.7, Lymph % (Auto) 17.5, [place] % (Auto) 5.8, Eos % (Auto) 1.6, Baso % (Auto) 1.5, Neut # (Auto) 6.6, Lymph # (Auto) 1.6, [place] # (Auto) 0.5, Eos # (Auto) 0.1, Baso # (Auto) 0.1 12/21/21 14:45: Sodium 134 L, Potassium 5.1, Chloride 104, Carbon Dioxide 22, Anion Gap 13.1, BUN 7, Creatinine 0.50 L, Estimated Creat Clear 278, Estimated GFR 157, Est GFR ( Amer) 190, Glucose 73 L, Calcium 8.6, Total Bilirubin 0.6, AST 48 H, ALT 14, Alkaline Phosphatase 138 H, Total Protein 6.4, Albumin 3.5, Globulin 2.9, Albumin/Globulin Ratio 1.2 I & O for Labs for Last 24 Hours: Intake & Output 12/19/21 12/20/21 12/21/21 12/22/21 11:59 11:59 11:59 11:59 Weight 216 lb Head: Present atraumatic and normocephalic Eyes: Present as per HPI ENT: Present normal exam Neck: Present normal inspection Respiratory: Present normal respiratory effort GI: Present soft; Absent distention or tenderness Extremities: Present normal inspection Skin: Present intact Neuro: Present DTR Norm/Equal U/L Extrem, alert, awake, oriented x 3 and moves all extremities Comment:: There was 1 beat of clonus. Reflexes are normal. Assessment and Plan *Assessment and plan (1) Mild preeclampsia: Status: Acute Category: Medical Code(s): O14.00 - Mild to moderate pre-eclampsia, unspecified trimester (2) Obesity (BMI 30-39.9): Status: Acute Category: Medical Code(s): E66.9 - Obesity, unspecified (3) Nausea and vomiting during : Status: Acute Category: Medical Code(s): O21.9 - Vomiting of , unspecified Plan Her blood work is normal. Her AST is slightly elevated. Platelets are normal. We are awaiting a uric acid. At this point in time she is stable to go home on bedrest. We will increase her labetalol to 200 mg twice daily and we will give her another dose of labetalol 100 mg right now. I will follow-up with her again in the office tomorrow morning. We will repeat her blood work again tomorrow. If her blood pressure stays elevated or her blood work changes we will go ahead and deliver her by 37 weeks. She is 36 and 5 today. I told her we would likely do a . Her cervix is closed and firm.
[2021-12-21 17:31] LABS: Coronavirus 19, PCR Not Detected (NotDetected); Influenza A, PCR Not Detected (NotDetected); Influenza B, PCR Not Detected (NotDetected)
[2021-12-22 04:08] VITALS: BP 130/79; PULSE 89; RESP 17; TEMP 36.7; O2SAT 98
--- NOTE | 2021-12-22 07:33 | HMH.PHAINT1 ---
Pharmacy Intervention Comments: MEDICATION RECONCILIATION COMPLETED ON PATIENT USING EXTERNAL FILL HISTORY FROM PHARMACY. -YENY DISLA, [place]
[2021-12-22 07:40] LABS: Eosinophils # 0.2 K/mm3 (0.0-0.4)
[2021-12-22 07:47] LABS: Basophils # 0.1 K/mm3 (0-0.2); Basophils % 0.6 % (0.1-2.0); Eosinophils % 1.9 % (0.1-12.0); Hematocrit 30.4 % (37.0-47.0); Lymphocytes # 2.3 K/mm3 (0.7-4.5); Mean Corpuscular Volume 84.8 fl (81-99); Mean Platelet Volume 10.9 fl (7.4-10.4); Monocytes # 0.5 K/mm3 (0.1-1.0); Monocytes % 5.4 % (1.7-9.3); Neutrophils # 6.8 K/mm3 (1.8-7.8); Neutrophils % 69.1 % (37.0-80.0); Platelet Count 378 K/mm3 (142-424); Red Blood Count 3.59 M/mm3 (4.20-5.40); Red Cell Distribution Width 14.7 % (11.5-17.5); White Blood Count 9.8 K/mm3 (4.5-13.0)
[2021-12-22 08:51] LABS: D-Dimer 2.73 ug/mL (0.0-0.5)
[2021-12-22 08:54] LABS: Alanine Aminotransferase 13 U/L (12-78); Anion Gap 14.8 mEq/L (5-15); Aspartate Amino Transferase 38 U/L (14-36); Blood Urea Nitrogen 6 mg/dl (7-17); Calcium 8.8 mg/dl (8.4-10.2); Carbon Dioxide 22 mmol/L (22.0-30.0); Chloride 105 mmol/L (98-107); Creatinine Clearance Estimated 278 mL/min (50-200); Estimated Glomerular Filt Rate 157 ml/min (>60); GFR (African American) 190 ML/MIN (>60); Glucose 78 mg/dl (74-100); Potassium 3.8 mmoL/L (3.5-5.1); Sodium 138 mmol/L (136-145)
[2021-12-22 08:58] LABS: Activated Partial Thrombo Time 24.3 seconds (22.8-30.6); Fibrinogen 392 mg/dL (229.9-363.5); INR 0.87 (0.9-1.1); Prothrombin Time 9.5 seconds (10.1-12.5)
[2021-12-22 09:02] LABS: Uric Acid 4.7 mg/dl (2.5-6.2)
--- NOTE | 2021-12-22 09:25 | EXP.HPDC ---
General Admission date:: 12/21/21 Discharge date: 12/22/21 *Admission Date: 12/21/21 *Chief complaint: Increased blood pressure, nauseous *History of present illness: She is a 21-year-old 1 para 0 at 36 weeks gestational age. She came in with nausea and vomiting. Her blood pressure was elevated and it was in the 140-160 range over 80-90 range. She has been taking labetalol 100 mg twice daily. PFSH PFS Medical History (Reviewed 12/22/21 @ 09: by Dionisio Emanuel MD) Heartburn during Hypertension Family History (Reviewed 12/22/21 @ : by Dionisio Emanuel MD) No significant family history Social History (Reviewed 12/22/21 @ : by Dionisio Emanuel MD) Smoking Status: Never smoker alcohol intake: never substance use type: denies use current occupational status: unemployed Travel in the last 8 weeks: None do you feel safe at home: Yes victim of physical abuse: No victim of emotional abuse: No victim of sexual abuse: No Review of Systems Review of Systems Review of systems:: pertinent systems reviewed and negative unless documented below Exam Data for Last 24 hours Vital signs and Labs for Last 24 Hours: Temp Pulse Resp BP Pulse Ox 98.1 F 89 17 130/79 98 12/22/21 04:08 12/22/21 04:08 12/22/21 04:08 12/22/21 04:08 12/22/21 04:08 Laboratory Results - last 24 hr 12/21/21 12:52: Urine Color Dk yellow, Urine Appearance Clear, Urine pH 6.0, Ur Specific [place] 1.020, Urine Protein Negative, Urine Glucose (UA) Negative, Urine Ketones Negative, Urine Blood Negative, Urine Nitrate Negative, Urine Bilirubin Negative, Urine Urobilinogen 0.2, Ur Leukocyte Esterase Negative, Urine RBC None, Urine WBC Occasional, Ur Squamous Epith Cells 10-20, Urine Bacteria Trace 12/21/21 12:52: Urine Opiates Screen Negative, Urine Methadone Screen Negative, Ur Barbituates Screen Negative, Ur Phencyclidine Scrn Negative, Ur Amphetamines Screen Negative, U Benzodiazepines Scrn Negative, Urine Cocaine Screen Negative, U Marijuana (THC) Screen Negative 12/21/21 14:45: WBC 9.0, RBC 4.24, Hgb 12.0 L, Hct 36.0 L, MCV 85.0, MCH 28.4, MCHC 33.4, RDW 14.5, Plt Count 372, MPV 10.5 H, Neut % (Auto) 73.7, Lymph % (Auto) 17.5, Antelope % (Auto) 5.8, Eos % (Auto) 1.6, Baso % (Auto) 1.5, Neut # (Auto) 6.6, Lymph # (Auto) 1.6, Antelope # (Auto) 0.5, Eos # (Auto) 0.1, Baso # (Auto) 0.1 12/21/21 14:45: Sodium 134 L, Potassium 5.1, Chloride 104, Carbon Dioxide 22, Anion Gap 13.1, BUN 7, Creatinine 0.50 L, Estimated Creat Clear 278, Estimated GFR 157, Est GFR ( Amer) 190, Glucose 73 L, Calcium 8.6, Total Bilirubin 0.6, AST 48 H, ALT 14, Alkaline Phosphatase 138 H, Total Protein 6.4, Albumin 3.5, Globulin 2.9, Albumin/Globulin Ratio 1.2 12/21/21 14:45: Uric Acid 4.0 12/21/21 17:19: SARS-CoV-2 (PCR) Not detected, Influenza A Untype (PCR) Not detected, Influenza Type B (PCR) Not detected 12/22/21 07:11: WBC 9.8, RBC 3.59 L, Hgb 10.0 L D, Hct 30.4 L, MCV 84.8, MCH 28.0, MCHC 33.0, RDW 14.7, Plt Count 378, MPV 10.9 H, Neut % (Auto) 69.1, Lymph % (Auto) 23.0, Antelope % (Auto) 5.4, Eos % (Auto) 1.9, Baso % (Auto) 0.6, Neut # (Auto) 6.8, Lymph # (Auto) 2.3, Antelope # (Auto) 0.5, Eos # (Auto) 0.2, Baso # (Auto) 0.1 12/22/21 07:11: PT 9.5 L, INR 0.87 L, APTT 24.3, Fibrinogen 392 H 12/22/21 07:11: D-Dimer 2.73 H, Sodium 138, Potassium 3.8 D, Chloride 105, Carbon Dioxide 22, Anion Gap 14.8, BUN 6 L, Creatinine 0.50 L, Estimated Creat Clear 278, Estimated GFR 157, Est GFR ( Amer) 190, Glucose 78, Uric Acid 4.7, Calcium 8.8, AST 38 H, ALT 13 I & O for Last 24 hours: Intake & Output 12/19/21 12/20/21 12/21/21 12/22/21 11:59 11:59 11:59 11:59 Intake Total 1207 / 1207 Output Total 1900 / 1900 Balance -693 / -693 Weight 216 lb Constitutional Constitutional: no acute distress *Routine HEENT Exam Head: Present normocephalic Eye: Present EOMI and PERRL ENT: Present mucous membranes moist *Routine Neck Exam Neck: Present
== END 2021-12-22 10:00 | disposition home or self-care (01) ==
LOC: OBOUT 17:22 → OB 17:22
PROVIDERS: Admitting Provider Nurse Practitioner Obstetrics & Gynecology; PCP Internal Medicine Adolescent Medicine; Visit Provider Nurse Practitioner Obstetrics & Gynecology
DX: O14.03 Mild to moderate pre-eclampsia, third trimester (principal); O21.9 Vomiting of pregnancy, unspecified; Z3A.36 36 weeks gestation of pregnancy
CPT/HCPCS: 36415; 59025; 80048; 80053; 80305; 81001; 84450; 84460; 84550; 85025; 85378; 85384; 85610; 85730; 86850; 96365; 96366; C9803; G0378; U0003; U0005

== ENCOUNTER → 2021-12-26 13:15 | Outpatient (CLI) | payer OTHER, SELFPAY ==
[2021-12-26 14:08] LABS: Activated Partial Thrombo Time 24.3 seconds (22.8-30.6); D-Dimer 2.89 ug/mL (0.0-0.5); Fibrinogen 496 mg/dL (229.9-363.5); INR 0.85 (0.9-1.1); Prothrombin Time 9.3 seconds (10.1-12.5)
[2021-12-26 14:13] LABS: Basophils % 10.4 % (0.1-2.0); Eosinophils # 0.2 K/mm3 (0.0-0.4); Hemoglobin 11.5 g/dL (12.2-16.2); Lymphocytes # 1.6 K/mm3 (0.7-4.5); Lymphocytes % 17.1 % (10-50); Mean Corpuscular HGB Conc 31.1 g/dL (31.8-35.4); Mean Corpuscular Hemoglobin 26.6 pg (27.0-31.2); Mean Corpuscular Volume 85.5 fl (81-99); Mean Platelet Volume 25.6 fl (7.4-10.4); Monocytes # 0.4 K/mm3 (0.1-1.0); Monocytes % 3.8 % (1.7-9.3); Neutrophils # 7.2 K/mm3 (1.8-7.8); Neutrophils % 77.1 % (37.0-80.0); Red Blood Count 4.32 M/mm3 (4.20-5.40); Red Cell Distribution Width 24.5 % (11.5-17.5); White Blood Count 9.3 K/mm3 (4.5-13.0)
[2021-12-26 14:18] LABS: Alanine Aminotransferase 13 U/L (12-78); Anion Gap 13.3 mEq/L (5-15); Aspartate Amino Transferase 24 U/L (14-36); Blood Urea Nitrogen 7 mg/dl (7-17); Carbon Dioxide 21 mmol/L (22.0-30.0); Chloride 108 mmol/L (98-107); Estimated Glomerular Filt Rate 157 ml/min (>60); GFR (African American) 190 ML/MIN (>60); Glucose 77 mg/dl (74-100); Potassium 4.3 mmoL/L (3.5-5.1); Sodium 138 mmol/L (136-145); Uric Acid 4.2 mg/dl (2.5-6.2)
[2021-12-26 15:14] LABS: Platelet Count 342 K/mm3 (142-424)
== END ==
PROVIDERS: PCP Internal Medicine Adolescent Medicine; Visit Provider Nurse Practitioner Obstetrics & Gynecology
DX: Z34.90 Encounter for supervision of normal pregnancy, unspecified, unspecified trimester (principal)
CPT/HCPCS: 36415; 80048; 84450; 84460; 84550; 85025; 85378; 85384; 85610; 85730

== ENCOUNTER 2022-08-06 11:19 | Emergency (ER) | payer OTHER, SELFPAY ==
[2022-08-06 11:19] VITALS: BP 128/88; PULSE 90; RESP 18; TEMP 36.7; O2SAT 95; BMI 31.4
--- NOTE | 2022-08-06 11:38 | EXP.UTC ---
Discharge Plan Disposition Patient Disposition: Home, Self-Care Condition: Good Prescriptions Prescriptions: New ondansetron 4 mg Tablet,Disintegrating 4 mg PO Q8H PRN (Reason: Nausea) Qty: 12 0RF No Action prenat.vits,neftaly,[id number] 1 EACH tablet 1 tab PO DAILY famotidine [Pepcid] 20 mg tablet 20 mg PO DAILY labetalol 100 mg tablet 200 mg PO BID Qty: 60 1RF Referrals Follow up/Referrals: Rosa Mejia APRN [Primary Care Provider] - See instructions Activity Restrictions/Add. Instructions Additional Instructions/Restrictions: Drink plenty of fluids. Take tylenol for pain or fever. Take the medications as directed. Follow up with your regular doctor. GO TO THE ER FOR ANY WORSENING SYMPTOMS Clinical Impressions Clinical Impression: Nausea & vomiting Instructions Patient Instructions: Ondansetron Discharge ED Provider: Nikolai Cuenca [facility] [place] General Stated complaint: vomiting,shaky Time Seen by Provider: 08/06/22 11:38 History of Present Illness Provider Complaint: She states that for the past 3 days she has had n/v in the mornings when she got out of bed. Related Data Home Medications Medication Instructions Recorded Confirmed prenat.vits,neftaly,[id number] 1 tab PO DAILY Supplement 09/17/21 12/26/21 famotidine 20 mg tablet (Pepcid) 20 mg PO DAILY Heartburn 12/22/21 12/26/21 Previous Rx's Medication Instructions Recorded labetalol 100 mg tablet 200 mg PO BID Hypertension #60 tabs 12/22/21 ondansetron 4 mg disintegrating 4 mg PO Q8H PRN Nausea #12 tabs 08/06/22 tablet Allergies Allergy/AdvReac Type Severity Reaction Status Date / Time No Known Allergies Allergy Verified 12/26/21 13:54 [facility] Disclaimer: The information contained in this section may have been updated after the patient was seen, as this information can be updated by other users. Medical History Abdominal pain Heartburn during Hypertension Nausea and vomiting during Family History Other No significant family history Social History Smoking Status: Never smoker alcohol intake: never substance use type: denies use current occupational status: unemployed Travel in the last 8 weeks: None do you feel safe at home: Yes victim of physical abuse: No victim of emotional abuse: No victim of sexual abuse: No ROS Obtained: Yes All systems reviewed & no additional complaints except as documented Constitutional Constitutional: Denies chills, Denies fever(s) and Reports poor appetite ENT Ears, Nose, Mouth, and Throat: Denies dizziness and Denies sore throat Cardiovascular Cardiovascular: Denies dyspnea Respiratory Respiratory: Denies chest congestion, Denies cough and Denies dyspnea Gastrointestinal Gastrointestingal: Reports as per HPI; Denies abdominal pain Genitourinary Female Genitourinary: Denies difficulty voiding, Denies dysuria, Denies hematuria, Denies urinary frequency, Denies urinary incontinence, Denies urinary hesitancy and Denies urinary urgency Musculoskeletal Musculoskeletal: Denies arthralgias Integumentary/Breasts Skin/Breast: Denies rash Neurologic Neurologic: Denies dizziness Physical Exam General General appearance: alert and in no apparent distress Head Head exam: atraumatic and normocephalic Eye Eye exam: Present normal appearance, PERRL and EOMI ENT ENT exam: Present normal exam, normal oropharynx, mucous membranes moist, TM's normal bilaterally and normal external ear exam Neck Neck exam: Present normal inspection, full ROM and trachea midline; Absent tenderness, meningismus or lymphadenopathy Chest Chest inspection: Present normal inspection and symmetric chest wall rise; Absent tenderness, rash or abscess Respiratory Respiratory exam: Present norm
[2022-08-06 11:55] LABS: UTC Pregnancy Test, Urine Negative (Negative)
[2022-08-06 12:27] VITALS: BP 128/88; PULSE 90; RESP 18; TEMP 36.7; O2SAT 95
== END 2022-08-06 12:28 | disposition home or self-care (01) ==
PROVIDERS: Emergency Provider Nurse Practitioner Family; PCP Nurse Practitioner Family
DX: R11.2 Nausea with vomiting, unspecified (principal); I10 Essential (primary) hypertension
CPT/HCPCS: 81025; 99212; 99214; G0463